=== PATIENT | female | born 1995 | race African-American/Black ===

== ENCOUNTER 2016-06-16 19:24 | Emergency (ER) | payer SELFPAY ==
[~2016-06-16] VITALS: Ht 162.6 cm; Wt 49.0 kg
[2016-06-16] MEDS ORDERED: IV SET PRIMARY 1 EA INFUS.SET MC ONE (20:29)
[2016-06-16] MEDS ORDERED: IV NS 0.9% 1,000 ML ONE (20:29)
[2016-06-16] MEDS ORDERED: ONDANSETRON HCL/PF 4 MG/2 ML VIAL ONE (20:29)
[2016-06-16] MEDS ORDERED: ONDANSETRON HCL/PF 4 MG/2 ML VIAL IVP ONE (20:30)
[2016-06-16] MEDS ORDERED: IV NS 0.9% 1,000 ML BAG IV ONE (20:30)
[2016-06-16 20:32] LABS: BASOPHILS # (AUTO) 0.1 /CMM (0.0-0.2); BASOPHILS % (AUTO) 1.5 % (0.0-2.0); DIFF TOTAL % 100 %; EOSINOPHILS # (AUTO) 0.3 /CMM (0.0-0.7); EOSINOPHILS % (AUTO) 6.5 % (0.0-6.0); HEMATOCRIT 43 % (33-45); HEMOGLOBIN 9.9 g/dL (11.5-14.8); LYMPHOCYTES # (AUTO) 0.5 /CMM (0.8-4.8); LYMPHOCYTES % (AUTO) 11.9 % (20.0-44.0); MEAN CORPUSCULAR HEMOGLOBIN 15 PG (26.0-33.0); MEAN CORPUSCULAR HGB CONC 23 g/dl (31.0-36.0); MEAN CORPUSCULAR VOLUME 67 fL (82-100); MONOCYTES # (AUTO) 0.3 /CMM (0.1-1.30); MONOCYTES % (AUTO) 7.2 % (2.0-12.0); NEUTROPHILS # (AUTO) 3.2 /CMM (1.8-8.9); NEUTROPHILS % (AUTO) 72.9 % (43.0-81.0); PLATELET COUNT (AUTO) 322 /CMM (150-450); RED BLOOD CELL COUNT(AUTO) 6.44 MIL/uL (4.0-5.2); WHITE BLOOD COUNT (AUTO) 4.4 K/uL (4.3-11.0)
[2016-06-16 20:35] LABS: KETONES,URINE 80 (NEGATIVE); LEUKOCYTE ESTERASE ,URINE Small (NEGATIVE); PH,URINE 6.5 (5.0-8.0)
[2016-06-16 20:36] LABS: ADD UA MICROSCOPIC YES; PREGNANCY TEST URINE QUAL NEGATIVE (NEGATIVE)
[2016-06-16 20:39] LABS: CALCIUM, SERUM 8.5 mg/dL (8.5-10.1); CREATININE 0.6 mg/dL (0.6-1.3); POTASSIUM 3.3 mmol/L (3.5-5.1)
[2016-06-16 20:44] LABS: ALBUMIN 2.7 g/dL (3.4-5.0); BILIRUBIN,DIRECT 0.1 mg/dL (0.0-0.2); BILIRUBIN,TOTAL 0.4 mg/dL (0.2-1.0); INDIRECT BILIRUBIN 0.3 mg/dL (0.0-1.1); TOTAL PROTEIN, SERUM 7.4 g/dL (6.4-8.2)
[2016-06-16 21:01] LABS: ADD URINE CULTURE YES
[2016-06-16 21:10] LABS: EOSINOPHILS % (MANUAL) 4 % (0-4); LYMPHOCYTES % (MANUAL) 14 % (16-48); PLATELET ESTIMATE ADEQUATE
[2016-06-16 21:11] LABS: ANISOCYTOSIS 1+
[2016-06-16] MEDS ORDERED: POTASSIUM CHLORIDE 20 MEQ TAB.PRT.SR PO ONE ×2 (21:41→22:00)
[2016-06-16 21:56] VITALS: BP 128/64
== END 2016-06-16 21:56 | disposition home or self-care (01) ==
LOC: ER 19:27
DX: R11.2 Nausea with vomiting, unspecified (principal); R19.7 Diarrhea, unspecified; M32.9 Systemic lupus erythematosus, unspecified; D50.9 Iron deficiency anemia, unspecified; E87.6 Hypokalemia; R82.99 Other abnormal findings in urine
CPT/HCPCS: 36415; 80048; 80076; 81001; 83690; 84703; 85025; 87086; 96360; 96374; 99284; A4606; J2405; J7030; Z7610; 81000-TC

== ENCOUNTER 2016-07-06 14:53 | Emergency (ER) | payer MEDICAID ==
[~2016-07-06] VITALS: Ht 162.6 cm; Wt 47.6 kg
[2016-07-06 15:10] VITALS: BP 132/84
[2016-07-06 16:46] LABS: KETONES,URINE Trace (NEGATIVE); LEUKOCYTE ESTERASE ,URINE Negative (NEGATIVE)
[2016-07-06 17:01] LABS: ADD UA MICROSCOPIC YES
[2016-07-06 18:10] LABS: ADD URINE CULTURE NO; MUCUS,URINE Moderate /LPF (None Seen); WBC,URINE 2-3/HPF /HPF (0-3)
== END 2016-07-06 18:33 | disposition home or self-care (01) ==
LOC: ER 14:56
DX: R11.2 Nausea with vomiting, unspecified (principal); R19.7 Diarrhea, unspecified
CPT/HCPCS: 81001; 99283; A4606; Z7610; 81000-TC